=== PATIENT | male | born 1985 | race Caucasian/White ===

== ENCOUNTER 2017-08-14 19:16 | Emergency (ER) | payer MEDICAID ==
[~2017-08-14] VITALS: Ht 157.5 cm; Wt 83.9 kg
[2017-08-14 19:19] VITALS: Ht 157.5 cm; Wt 83.9 kg
[2017-08-14] MEDS ORDERED: LORA1TAB54 PO (20:42)
[2017-08-14] MEDS ORDERED: IBUP-1542 PO (20:42)
--- NOTE | 2017-08-14 21:58 | ERD ---
ER Documentation Chief Complaint Chief Complaint sore throat x 2 days HPI This is a 32-year-old male presenting to the emergency department complaining of sore throat for the past 2 days. He denies any fevers, cough, vomiting diarrhea. Denies taking any medications for this ROS All systems reviewed and are negative except as per history of present illness. Medications Home Meds Active Scripts Loratadine/Pseudoephedrine* (Claritin-D* 12 Hr) 5-120 Mg Tab.er.12h, 1 TAB PO Q12, #20 TAB.SA Prov:SARAH PALAFOX PA-C 08/14/17 Ibuprofen* (Motrin*) 600 Mg Tab, 600 MG PO Q6H Y for PAIN AND OR ELEVATED TEMP, #30 TAB Prov:SARAH PALAFOX PA-C 08/14/17 Allergies Allergies: Coded Allergies: No Known Drug Allergies (Verified Allergy, Unknown, 08/14/17) Physical Exam Vitals Vital Signs Date Time Temp Pulse Resp B/P Pulse Ox O2 Delivery O2 Flow Rate FiO2 08/14/17 19:19 99.4 86 20 144/86 98 Physical Exam Const: Well-developed well-nourished Head: Atraumatic Eyes: Normal Conjunctiva ENT: Normal External Ears, Nose and Mouth. Neck: Full range of motion..~ No meningismus. No lymphadenopathy Resp: Clear to auscultation bilaterally Cardio: Regular rate and rhythm, no murmurs Abd: Soft, non tender, non distended. Normal bowel sounds Skin: No petechiae or rashes Back: No midline or flank tenderness Ext: No cyanosis, or edema Neur: Awake and alert Psych: Normal Mood and Affect Procedures/MDM This is a 32-year-old male presenting to the emergency department complaining of a sore throat for the past 2 days which likely looks like a viral pharyngitis. There was no evidence of strep pharyngitis, peritonsillar abscess or retropharyngeal abscess. Patient is afebrile and stable to be discharged home with prescription for ibuprofen and Claritin-D. Return precautions given Departure Diagnosis: Primary Impression: Pharyngitis Condition: Stable Patient Instructions: Pharyngitis, Viral SARAH PALAFOX PA-C Aug 14, 2017 21:58
== END 2017-08-15 08:23 | disposition home or self-care (01) ==
LOC: E/R 19:16
DX: J02.9 Acute pharyngitis, unspecified (principal)
CPT/HCPCS: 99283